=== PATIENT | female | born 1995 | race Caucasian/White ===

== ENCOUNTER → 2022-07-06 | Outpatient (CLI) | payer OTHER, SELFPAY ==
[2022-07-06 17:18] LABS: Absolute Lymphocyte Count 2.13 X10^3/uL (0.83-4.51); Absolute Neutrophil Count 7.7 X10^3/uL (2.0-7.7); Basophil# 0.02 X10^3/uL; Basophil% 0.2 % (0-1); Eosinophil# 0.01 X10^3/uL; Eosinophils% 0.1 % (0-5); Hematocrit 38.6 % (37-47); Hemoglobin 13.4 g/dL (12.0-15.0); Lymphocyte # 2.13 X10^3/ul (0.83-4.51); Lymphocyte % 20.3 % (19-41); Mean Corp Hgb Conc 34.7 g/dL (32-36); Mean Corpuscular Hgb 29.5 pg (27.0-32.0); Mean Corpuscular Volume 84.8 fL (81-99); Mean Platelet Vol. 8.7 fl (6.2-12.0); Monocyte# 0.56 X10^3/uL; Monocyte% 5.3 % (0-10); NRBC Flagged by Analyzer 0 % (0-5); Neutrophil # 7.72 X10^3/uL (2.7-7.7); Neutrophil % 73.7 % (47-70); Platelet Count 292 K/mm3 (150-450); RBC Distribution Width CV 12.4 % (11.6-14.6); Red Blood Count 4.55 M/mm3 (4.2-5.4); White Blood Count 10.5 K/mm3 (4.4-11.0)
[2022-07-06 18:33] LABS: HIV - WCH Non-Reactive (Nonreactive); Hepatitis B Surface Antigen Non-Reactive (Nonreactive); Hepatitis C Antibody Non-Reactive (Nonreactive); Rubella IgG Reactive (Nonreactive); Syphilis Antibodies Non-reactive
[2022-07-10 05:06] LABS: Chlamydia By Nucleic Acid AMP Negative (Negative); Gonococcus By Nucleic Acid AMP Negative (Negative)
[2022-07-11 11:23] LABS: V-Zoster IgG (Immunity) 289 index (Immune >165)
[2022-07-18 15:59] LABS: HPV Reflexed? NOT INDICATED
== END | disposition home or self-care (01) ==
LOC: WOBLAB 14:20
PROVIDERS: Visit Provider Obstetrics & Gynecology
DX: Z34.81 Encounter for supervision of other normal pregnancy, first trimester (principal)
CPT/HCPCS: 36415; 85025; 86703; 86762; 86780; 86787; 86803; 87086; 87088; 87340; 87491; 87591; 88175; G0145

== ENCOUNTER → 2022-08-15 | Outpatient (CLI) | payer OTHER, SELFPAY ==
--- NOTE | 2022-08-15 | IMM_PTH ---
PATIENT: CARMENCITA STARK LOC: [facility] U#:[id number] AGE/SX: 26/F ROOM: RE08/15/[address]: Dr. Guillermo Menard MD : 1995 BED: DIS: 08/15/2022 SPEC #: [id number] RECD: 08/16/22 13:30 STATUS: EFFIE REQ #: [id number] SKYLAR: 08/15/22 00:[address]: Guillermo Menard DEPT: IMMUNOHISTOCHEMISTRY RECD BY: Zakiya Wihtley Tissues: Uterine cervix, NOS Procedures: p16 (initial) CEA (add) CK5-6 (add) KI-67 (add) Vimentin (add) 34BE12 (add) P40 (add) PHYSICIAN & INSTITUTION [place] [address] SPECIMEN INFORMATION: Tissue Source: Cervix at 1, 5, 7 & 11 o?clock Clinical Info: HGSIL Specimen Number: [id number] CPT code: 00363, 77046 x6 METHODOLOGY: Deparaffinized sections of prefer/formalin-fixed tissue or PAP/DQ stained slides are incubated with monoclonal/polyclonal antibodies/oligonucleotide probes. Localization is made via biotin free immunoperoxidase method. Appropriate controls are performed and reacted as expected. Results on target cell population are indicated in the following table: RESULTS: ANTIBODY / CLONE RESULT P16 (E6H4) positive, focal block-like Ki-67 (30-9) positive, low P40 (BC28) positive, focal CK5-6 (D5 & 1684) positive, focal 34BE12 (34BE12) positive CEA (11-7/TF-3HB-1) negative Vimentin (V9) negative These tests were developed and their performance characteristics determined by [facility]. They may not have been cleared or approved by the U.S. Food and Drug Administration. The FDA has determined that such clearance or approval is not necessary. The above immunohistochemical/dualISH markers are ordered and reviewed by the Pathologist. 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 AM:megan 08/28/2022 Case has been reviewed in consultation with Dr. Magana who concurs with the above diagnosis. IDC:SJ
--- NOTE | 2022-08-15 11:20 | CER_PTH ---
PATIENT: CARMENCITA STARK LOC: [facility] U#:[id number] AGE/SX: 26/F ROOM: RE08/15/[address]: Dr. Guillermo Menard MD : 1995 BED: DIS: 08/15/2022 SPEC #: [id number] RECD: 08/15/22 13:40 STATUS: EFFIE NIKO #: [id number] SKYLAR: 08/15/22 11:[address]: Guillermo Menard DEPT: SURGICAL PATHOLOGY RECD BY: Hilda Becker Tissues: Uterine cervix, NOS Procedures: Surgery Specimen Level IV HEADER OPERATION: Colposcopy PRE-OP DIAGNOSIS: HGSIL TISSUE SUBMITTED: Cervical biopsy, 1, 5, 7 & 11 o?clock MICROSCOPIC DIAGNOSIS Cervix at 1, 5, 7 & 11 o?clock, biopsy: Mild and moderate squamous dysplasia, SHI I-II (HSIL) with glandular extension. Extensive pseudodecidual change. Endocervix with focal squamous metaplasia and chronic inflammation. See comment. AM:megan 08/28/2022 COMMENT Results from immunohistochemistry ([id number]) for surrogate HPV marker (p16) will be reported separately. Moderate dysplasia is noted in glandular epithelium. Clinical correlation is suggested. Case is reviewed I consultation with of [employer]. Complete report is in EMR. Case has been reviewed in consultation with Dr. Magana who concurs with the above diagnosis. IDC:JEMMA MICROSCOPIC DESCRIPTION Slides are reviewed. GROSS DESCRIPTION Received in fixative is one container labeled with the patient's name and designated cervical biopsy. The specimen consists of multiple irregular fragments of oliver soft tissue mixed with mucoid tissue that in aggregate measure 1 x 0.7 x 0.1 cm. The specimen is totally submitted in one cassette. / JEMMA:megan 08/15/2022 TC:0 CPT: 72207
== END | disposition home or self-care (01) ==
LOC: LABSPEC 13:12
PROVIDERS: Visit Provider Obstetrics & Gynecology
DX: R87.623 High grade squamous intraepithelial lesion on cytologic smear of vagina (HGSIL) (principal)
CPT/HCPCS: 88305; 88341; 88342

== ENCOUNTER → 2022-11-09 | Outpatient (CLI) | payer OTHER, SELFPAY ==
[2022-11-09 09:27] LABS: Absolute Lymphocyte Count 1.46 X10^3/uL (0.83-4.51); Absolute Neutrophil Count 8.3 X10^3/uL (2.0-7.7); Basophil# 0.03 X10^3/uL; Basophil% 0.3 % (0-1); Eosinophil# 0.02 X10^3/uL; Eosinophils% 0.2 % (0-5); Hematocrit 34.4 % (37-47); Hemoglobin 11.6 g/dL (12.0-15.0); Lymphocyte # 1.46 X10^3/ul (0.83-4.51); Lymphocyte % 14.2 % (19-41); Mean Corp Hgb Conc 33.7 g/dL (32-36); Mean Corpuscular Volume 88.9 fL (81-99); Mean Platelet Vol. 8.3 fl (6.2-12.0); Monocyte# 0.35 X10^3/uL; Monocyte% 3.4 % (0-10); NRBC Flagged by Analyzer 0 % (0-5); Neutrophil # 8.31 X10^3/uL (2.7-7.7); Neutrophil % 80.6 % (47-70); Platelet Count 227 K/mm3 (150-450); RBC Distribution Width SD 41.8 fl (35.1-43.9); Red Blood Count 3.87 M/mm3 (4.2-5.4); White Blood Count 10.3 K/mm3 (4.4-11.0)
[2022-11-09 09:54] LABS: Glucose Challenge Gest 1H 50g 153 mg/dL (70-140)
[2022-11-09 10:17] LABS: Syphilis Antibodies Non-reactive
== END | disposition home or self-care (01) ==
LOC: WOBLAB 08:44
PROVIDERS: Visit Provider Obstetrics & Gynecology
DX: Z34.82 Encounter for supervision of other normal pregnancy, second trimester (principal)
CPT/HCPCS: 36415; 82950; 85025; 86780

== ENCOUNTER → 2022-11-13 | Outpatient (CLI) | payer OTHER, SELFPAY ==
[2022-11-13 09:21] LABS: Glucose GTT-Gestation. Fasting 84 mg/dL (<105)
[2022-11-13 10:35] LABS: Glucose GTT-Gestational 1 Hr 155 mg/dL (<190)
[2022-11-13 11:34] LABS: Glucose GTT-Gestational 2 Hr 145 mg/dL (<165)
[2022-11-13 13:28] LABS: Glucose GTT-Gestational 3 Hr 119 L (<145)
== END | disposition home or self-care (01) ==
LOC: WOBLAB 08:36
PROVIDERS: Visit Provider Obstetrics & Gynecology
DX: O24.912 Unspecified diabetes mellitus in pregnancy, second trimester (principal); Z3A.00 Weeks of gestation of pregnancy not specified
CPT/HCPCS: 36415; 82951; 82952

== ENCOUNTER → 2023-01-19 | Outpatient (CLI) | payer OTHER, SELFPAY | END | disposition home or self-care (01) | LOC: LAB 17:01 | PROVIDERS: Referring Provider Obstetrics & Gynecology; Visit Provider Obstetrics & Gynecology | DX: Z34.83 Encounter for supervision of other normal pregnancy, third trimester (principal); Z36.85 Encounter for antenatal screening for Streptococcus B; K83.1 Obstruction of bile duct ==

== ENCOUNTER → 2023-01-19 | Outpatient (CLI) | payer OTHER, SELFPAY ==
[2023-01-19 17:25] LABS: Hematocrit 34.3 % (37-47); Hemoglobin 11.4 g/dL (12.0-15.0); Mean Corp Hgb Conc 33.2 g/dL (32-36); Mean Corpuscular Hgb 27.3 pg (27.0-32.0); Mean Corpuscular Volume 82.1 fL (81-99); Mean Platelet Vol. 8.8 fl (6.2-12.0); Platelet Count 157 K/mm3 (150-450); RBC Distribution Width CV 13.8 % (11.6-14.6); RBC Distribution Width SD 40.6 fl (35.1-43.9); Red Blood Count 4.18 M/mm3 (4.2-5.4); White Blood Count 9.5 K/mm3 (4.4-11.0)
[2023-01-19 18:44] LABS: ALB/GLOB Ratio 0.5 RATIO (0.9-2.4); AST(SGOT) 21 U/L (15-37); Alanine Aminotransfer ALT/SGPT 24 U/L (13-56); Albumin, Serum 2.6 g/dL (3.2-5.0); Alkaline Phosphatase 217 U/L (45-117); Anion Gap 9 (5-15); BUN 7 mg/dL (7-18); BUN/Creat Ratio 10.6 RATIO (10-20); Calcium,Total 8.7 mg/dL (8.5-10.1); Chloride 104 mmol/L (98-107); Creatinine, Serum 0.66 mg/dL (0.55-1.02); EST Glomerular Filtration Rate 114 mL/min (>60); Est Glom Filt Rate - Afr Amer 137 mL/min (>60); Globulin 4.8 g/dL (2.2-4.2); Glucose 119 mg/dL (74-106); Potassium 3.5 mmol/L (3.5-5.1); Protein, Total 7.4 g/dL (6.4-8.2); Sodium Level 134 mmol/L (136-145)
== END | disposition home or self-care (01) ==
LOC: LABSPEC 16:58 → LAB 17:05
PROVIDERS: Visit Provider Obstetrics & Gynecology
DX: Z34.83 Encounter for supervision of other normal pregnancy, third trimester (principal); Z36.85 Encounter for antenatal screening for Streptococcus B
CPT/HCPCS: 36415; 80053; 85027; 87081

== ENCOUNTER 2023-02-01 06:50 | Inpatient (IN) | payer OTHER, SELFPAY ==
[2023-02-01] VITALS (69 sets, daily range): BP systolic 90–137; BP diastolic 51–88; PULSE 60–239; TEMP 35.7–37.3; O2SAT 89–100; BMI 36.2
[2023-02-01] MEDS: Lactated Ringers 1,000 ML 50 ML IV (08:10)
[2023-02-01] MEDS: Oxytocin 15 Units/NS 250ml 15 UNITS/250 ML IV.SOLN 2 UNITS IV (08:22)
--- NOTE | 2023-02-01 08:23 | PCM.HP.BLA ---
History and Physical Date of Admission: 02/01/23 Chief complaint: Induction of labor for cholestasis History present illness: 27-year-old at 38 weeks and 2 days with CROW 02/13/2023 arrives for induction of labor with cholestasis. Denies headache, vision changes, chest pain, shortness of breath, nausea vomit, right upper quadrant pain. Patient states good movement. is complicated by cholestasis, BMI 36, SHI-2 Obstetric history: G1: 41-week female 6 pounds 7 ounces G2: Current Past medical history: Cholestasis, SHI-2 Past surgical history: [place] teeth extraction Allergies: Penicillin Family history: Denies history DVT or PE Social history: Denies smoking, alcohol use, drug use Review of systems: Besides above pertinent positives a full review of systems was performed and found to be negative Physical exam: Vitals: Blood pressure 121/79 pulse 113 SPO2 97% on room air General: Normal-appearing no acute distress HEENT: Normocephalic/atraumatic no cervical lymphadenopathy Cardiac/respiratory: No use of accessory muscles, nonlabored breathing Abdomen: Soft, nontender, gravid Extremities: No peripheral edema normal peripheral pulses Psych: Normal affect normal demeanor nonpressured speech Labs: Pending Assessment and plan: 27-year-old at 38 weeks and 2 days arrives for induction of labor with cholestasis Admit labor and delivery CEFM GBS negative Pitocin induction Cholestasis: Induction today and will follow-up
[2023-02-01 08:47] LABS: Absolute Lymphocyte Count 1.33 X10^3/uL (0.83-4.51); Absolute Neutrophil Count 6.8 X10^3/uL (2.0-7.7); Basophil# 0.01 X10^3/uL; Basophil% 0.1 % (0-1); Eosinophil# 0.01 X10^3/uL; Eosinophils% 0.1 % (0-5); Hemoglobin 11.5 g/dL (12.0-15.0); Lymphocyte # 1.33 X10^3/ul (0.83-4.51); Lymphocyte % 15.3 % (19-41); Mean Corp Hgb Conc 32.9 g/dL (32-36); Mean Corpuscular Hgb 27.3 pg (27.0-32.0); Mean Corpuscular Volume 83.1 fL (81-99); Mean Platelet Vol. 8.9 fl (6.2-12.0); Monocyte% 5.8 % (0-10); NRBC Flagged by Analyzer 0 % (0-5); Neutrophil # 6.76 X10^3/uL (2.7-7.7); Platelet Count 175 K/mm3 (150-450); RBC Distribution Width CV 14.3 % (11.6-14.6); RBC Distribution Width SD 42.2 fl (35.1-43.9); Red Blood Count 4.21 M/mm3 (4.2-5.4); White Blood Count 8.7 K/mm3 (4.4-11.0)
[2023-02-01 09:49] LABS: Syphilis Antibodies Non-reactive
[2023-02-01] MEDS: LACTATED RINGERS 500 ML 999 ML IV ×2 (15:08→17:00)
[2023-02-01] MEDS: fentaNYL-bupivacaine (epidural) 100 ML BAG EPIDURAL (16:34)
--- NOTE | 2023-02-01 17:11 | PCM.PN.OB ---
Subjective Subjective Patient now comfortable with epidural Objective Data Objective Data Vital Signs: Vital Signs Temp Pulse BP Pulse Ox 96.6 F L 75 100/66 100 02/01/23 16:53 02/01/23 17:07 02/01/23 17:07 02/01/23 17:07 Weight: 185 lb 6.54 oz Body Mass Index (BMI) 36.2 Intake & Output: Intake and Output for Last 24 Hours 01/30/23 01/31/23 02/01/23 23:59 23:59 23:59 Intake Total 412.73 / 412.73 Output Total 900 / 900 Balance -487.27 / -487.27 Lab / Micro Data 02/01/23 08:10 Labs: Laboratory Results - last 24 hr 02/01/23 08:10: WBC 8.7, RBC 4.21, Hgb 11.5 L, Hct 35.0 L, MCV 83.1, MCH 27.3, MCHC 32.9, RDW Std Deviation 42.2, RDW Coeff of Jayson 14.3, Plt Count 175, MPV 8.9, Immature Gran % (Auto) 0.700, Neut % (Auto) 78.0 H, Lymph % (Auto) 15.3 L, [place] % (Auto) 5.8, Eos % (Auto) 0.1, Baso % (Auto) 0.1, Absolute Neuts (auto) 6.8, Absolute Lymphs (auto) 1.33, Nucleated RBC % 0, Syphilis Total Ab Non-reactive, Blood Type O POSITIVE, Antibody Screen NEGATIVE Physical Exam Const alert, oriented x3, no apparent distress, average body habitus, healthy appearing and well nourished HEENT normocephalic and moist oral mucous membranes Eyes PERRL Neck full ROM Resp normal respiratory effort, no retractions and no use of accessory muscles GI GI Narrative: Soft, nontender, gravid Narrative: Cervical exam: /-2. AROM clear fluid Psych mental status grossly normal, affect normal, speech normal and activity/motor behavior normal Assessment & Plan (1) : PLAN: Patient seen and examined. Now comfortable with epidural. Educated patient on options for AROM wrist benefits alternatives, patient and partner agreed AROM. AROM clear fluid. Educated patient on care plan going forward all questions answered for patient and partner and nursing. We will continue to titrate Pitocin
[2023-02-01] MEDS: Lactated Ringers 1,000 ML 200 ML IV (19:50)
[2023-02-01] MEDS: Ondansetron 4 MG/2 ML Vial IV (20:17)
[2023-02-01] MEDS: Mag Hydrox/Al Hydrox/Simeth 30 ML UDC PO (20:54)
[2023-02-01] MEDS: Methylergonovine 0.2 MG/ML Ampul IM (21:26)
[2023-02-01] MEDS: miSOPROStol 200 MCG Tablet 1000 MCG RC (21:37)
--- NOTE | 2023-02-01 21:44 | EX.PCM.OBRPT ---
Vaginal Delivery Findings Description of Procedure: Normal spontaneous vaginal delivery of a viable male , vertex BARBARA. Head and shoulders delivered with ease. Cord clamped and cut. Baby handed off to patient. Placenta delivered via cord traction and fundal massage intact, placenta reinspected after delivery and again intact. Uterine atony noted IM Pitocin given per protocol in addition to IM Methergine and Cytotec at 1000 mcg rectally. Uterus noted to be firm. Bedside ultrasound notes thin endometrial stripe. Second-degree midline perineal laceration noted and repaired in typical fashion. EBL 500 cc Apgars 6/8
[2023-02-01] MEDS: Oxytocin 15 Units/NS 250ml 15 UNITS/250 ML IV.SOLN 83 UNITS IV (21:53)
[2023-02-01] MEDS: Acetaminophen 500 MG Tablet 1000 MG PO (22:56)
[2023-02-02] MEDS: 0.9% Saline Lock 10 ML Syringe IV (00:53)
--- NOTE | 2023-02-02 02:14 | PCM.PN.OB ---
Subjective Subjective Patient resting comfortably in bed Objective Data Objective Data Vital Signs: Vital Signs Temp Pulse BP Pulse Ox 99.0 F 93 122/73 H 97 02/01/23 23:40 02/01/23 23:43 02/01/23 23:43 02/01/23 23:42 Weight: 185 lb 6.54 oz Body Mass Index (BMI) 36.2 Intake & Output: Intake and Output for Last 24 Hours 01/31/23 02/01/23 02/02/23 23:59 23:59 23:59 Intake Total 3096.67 / 3096.67 249 / 249 Output Total 1400 / 2100 700 / 700 Balance 1696.67 / 996.67 -451 / -451 Lab / Micro Data 02/01/23 08:10 Labs: Laboratory Results - last 24 hr 02/01/23 08:10: WBC 8.7, RBC 4.21, Hgb 11.5 L, Hct 35.0 L, MCV 83.1, MCH 27.3, MCHC 32.9, RDW Std Deviation 42.2, RDW Coeff of Jayson 14.3, Plt Count 175, MPV 8.9, Immature Gran % (Auto) 0.700, Neut % (Auto) 78.0 H, Lymph % (Auto) 15.3 L, [place] % (Auto) 5.8, Eos % (Auto) 0.1, Baso % (Auto) 0.1, Absolute Neuts (auto) 6.8, Absolute Lymphs (auto) 1.33, Nucleated RBC % 0, Syphilis Total Ab Non-reactive, Blood Type O POSITIVE, Antibody Screen NEGATIVE Physical Exam Const no apparent distress, average body habitus, healthy appearing and well nourished HEENT normocephalic and moist oral mucous membranes Chest inspection of chest normal Resp normal respiratory effort, no retractions and no use of accessory muscles Extremity normal to inspection and no clubbing, cyanosis or edema Skin no rashes or lesions noted Assessment & Plan (1) Vaginal delivery: PLAN: day 1. Resting comfortably in bed. Discussed care plan with patient's partner. Possibly home tomorrow
[2023-02-02 04:25] VITALS: BP 105/63; PULSE 86; RESP 16; TEMP 36.9; O2SAT 96
[2023-02-02] MEDS: Acetaminophen 500 MG Tablet 1000 MG PO ×3 (04:58→22:09)
[2023-02-02 07:52] VITALS: BP 98/51; PULSE 78; RESP 16; TEMP 36.7
[2023-02-02] MEDS: Ibuprofen 600 MG Tablet PO (11:23)
[2023-02-02 11:25] VITALS: BP 97/57; PULSE 88; RESP 16; TEMP 36.6
[2023-02-02 16:30] VITALS: BP 88/56; PULSE 83; RESP 16; TEMP 36.2
[2023-02-02 20:40] VITALS: BP 93/55; PULSE 89; RESP 16; TEMP 36.3; O2SAT 97
--- NOTE | 2023-02-03 00:25 | PCM.PN.OB ---
Subjective Subjective Patient feeling well. Lochia minimal. No issues or concerns. Itching resolved. Objective Data Objective Data Vital Signs: Vital Signs Temp Pulse Resp BP Pulse Ox O2 Del Method 97.3 F L 89 16 93/55 L 97 Room Air 02/02/23 20:40 02/02/23 20:40 02/02/23 20:40 02/02/23 20:40 02/02/23 20:40 02/02/23 20:40 Oxygen Delivery Method Room Air Weight: 84.1 kg Body Mass Index (BMI) 36.2 Intake & Output: Intake and Output for Last 24 Hours 02/01/23 02/02/23 02/03/23 23:59 23:59 23:59 Intake Total 3096.67 / 3096.67 249 / 249 Output Total 1400 / 2100 1075 / 1075 Balance 1696.67 / 996.67 -826 / -826 Lab / Micro Data Attestation: I reviewed the patient's lab results. 02/01/23 08:10 Physical Exam Const alert, oriented x3 and no apparent distress HEENT normocephalic Head and Scalp: atraumatic Neck full ROM Resp normal respiratory effort Cardio regular rate GI normal to inspection, nondistended, normoactive bowel sounds GI Narrative: Uterus 2 cm below umbilicus Back/Spine normal ROM Extremity normal to inspection Extremity Narrative: Minimal pedal edema Neuro no focal motor deficits and no sensory deficits noted Psych mental status grossly normal and affect normal Assessment & Plan (1) Vaginal delivery: PLAN: day 1 status post . Complicated by cholestasis. Pruritus is resolved. Feeling well. Desires discharge home today.
--- NOTE | 2023-02-03 00:26 | DCINST_ITS ---
Discharge Instructions Diet Discharge Diet: No restrictions Activity Discharge Activity: Return to Normal Activity and May Shower May resume sexual activity in: 4-6 weeks Weight Bearing Status: Weight bearing as tolerated Lifting Restrictions: No greater than 25 pounds Dressing / Incision Call your doctor if you observe: Fever of 101 or Higher, Change in Color, Inability to urinate, Using more than 1 pad per hour, Shortness of breath, Dizziness, Swelling in the ankles, Chest pain and Calf discomfort Follow Up Care Please Follow Up With: Guillermo Menard MD When: 6-week visit Test Results: Test results from this visit will be discussed in further detail at your follow- up appointment, if applicable. Discharge Plan Admission Admit Date/Time: 02/01/23 06:50 Primary Reason for Your Visit: Vaginal delivery Attending Provider: Guillermo Menard Primary Care Provider: Mallorie Moss Primary Discharge Orders/Prescriptions Prescriptions: Continued PNV 955-bfzgy-daufk-3-fish oil [ with DHA-Folic Acid] 1 EACH tablet,chewable 1 ea PO DAILY ibuprofen 600 MG tablet 600 mg PO Q6H PRN PRN (Reason: pain or cramping) Qty: 30 1RF ferrous sulfate [Iron (ferrous sulfate)] 325 MG tablet 325 mg PO DAILY Qty: 30 3RF Discontinued oxycodone 5 MG tablet 5 - 10 mg PO Q4H PRN PRN (Reason: MODERATE PAIN (4-5/10)) Qty: 20 0RF ursodiol 300 mg capsule PO Q8H Patient Comments: TAKE 1 CAPSULE BY MOUTH THREE TIMES A DAY folic acid 1 mg tablet 1 mg PO DAILY Referrals / Follow Up: Care Physician,Mallorie Primary [Primary Care Provider] - Disposition Disposition (needs filled in before D/C Order can be placed): Home, Self Care
--- NOTE | 2023-02-03 00:28 | PCM.DC.SUM ---
Providers Date of Admission: 02/01/23 Primary Care Physician: Mallorie Primary Care Phys Reason For Visit: VAGINAL DELIVERY Diagnosis Discharge Diagnosis (1) Vaginal delivery: Status: Acute Code(s): O80 - Encounter for full-term uncomplicated delivery Plan: day 1 status post . Complicated by cholestasis. Pruritus is resolved. Feeling well. Desires discharge home today. Medications at Discharge Home Medications ferrous sulfate 325 mg (65 mg iron) tablet (Iron (ferrous sulfate)) 325 mg PO DAILY #30 tabs 09/14/15 ibuprofen 600 mg tablet 600 mg PO Q6H PRN PRN pain or cramping ##30 09/14/15 103-folic acid 400 mcg-omeg3 32.5 mg-dha-fish oil chew tablet ( with DHA and Folic Acid) 1 ea PO DAILY 09/14/15 Hospital Course Summary of Care Provided Hospital Course: Admitted for induction of labor for cholestasis. Patient had vaginal delivery. Stable for discharge day 2. Physical Exam Const alert, oriented x3 and no apparent distress HEENT normocephalic Head and Scalp: atraumatic Neck full ROM Resp normal respiratory effort Cardio regular rate GI normal to inspection, nondistended, normoactive bowel sounds GI Narrative: Uterus 2 cm below umbilicus Back/Spine normal ROM Extremity normal to inspection Extremity Narrative: Minimal pedal edema Neuro no focal motor deficits and no sensory deficits noted Psych mental status grossly normal and affect normal Weight / BMI Weight Weight: 84.1 kg Body Mass Index (BMI) 36.2 ABG / Lab / Microbiology Data 02/01/23 08:10 D/C Instructions Discharge Diet: No restrictions May resume sexual activity in: 4-6 weeks Weight Bearing Status: Weight bearing as tolerated Call your doctor if you observe: Fever of 101 or Higher, Change in Color, Inability to urinate, Using more than 1 pad per hour, Shortness of breath, Dizziness, Swelling in the ankles, Chest pain and Calf discomfort Please Follow Up With: Guillermo Menard MD When: 6-week visit Meaningful Use Info Meaningful Use Diagnoses (Choose all that apply): None applicable Discharge Plan Admission Admit Date/Time: 02/01/23 06:50 Primary Reason for Your Visit: Vaginal delivery Attending Provider: Guillermo Menard Primary Care Provider: Care Physician,Mallorie Primary Discharge Orders/Prescriptions Prescriptions: Continued PNV 400-sbleq-kjwab-3-fish oil [ with DHA-Folic Acid] 1 EACH tablet,chewable 1 ea PO DAILY ibuprofen 600 MG tablet 600 mg PO Q6H PRN PRN (Reason: pain or cramping) Qty: 30 1RF ferrous sulfate [Iron (ferrous sulfate)] 325 MG tablet 325 mg PO DAILY Qty: 30 3RF Discontinued oxycodone 5 MG tablet 5 - 10 mg PO Q4H PRN PRN (Reason: MODERATE PAIN (4-5/10)) Qty: 20 0RF ursodiol 300 mg capsule PO Q8H Patient Comments: TAKE 1 CAPSULE BY MOUTH THREE TIMES A DAY folic acid 1 mg tablet 1 mg PO DAILY Referrals / Follow Up: Care Physician,No Primary [Primary Care Provider] - Disposition Disposition (needs filled in before D/C Order can be placed): Home, Self Care
[2023-02-03 02:15] VITALS: BP 99/57; PULSE 87; RESP 16; TEMP 36.5; O2SAT 97
[2023-02-03] MEDS: Ibuprofen 600 MG Tablet PO ×3 (03:15→16:45)
[2023-02-03] MEDS: Acetaminophen 500 MG Tablet 1000 MG PO (06:32)
[2023-02-03 08:05] VITALS: BP 95/62; PULSE 82; RESP 17; TEMP 36.6
[2023-02-03 14:15] VITALS: BP 95/54; PULSE 84; RESP 17; TEMP 36.5
[2023-02-03 19:11] VITALS: BP 102/61; PULSE 95; RESP 17
== END 2023-02-03 20:10 | disposition home or self-care (01) | DRG 805 ==
PROVIDERS: Admitting Provider Obstetrics & Gynecology; Referring Provider Obstetrics & Gynecology; Visit Provider Obstetrics & Gynecology
DX: O26.62 Liver and biliary tract disorders in childbirth (principal); Z37.0 Single live birth; K83.1 Obstruction of bile duct; L29.9 Pruritus, unspecified; O99.72 Diseases of the skin and subcutaneous tissue complicating childbirth; O70.1 Second degree perineal laceration during delivery; O62.2 Other uterine inertia; Z3A.38 38 weeks gestation of pregnancy
CPT/HCPCS: 59025; 59050; 76815; 85025; 86780; 86850; 86900; 86901; 99221; J7120; A4216; G0378; J2405

== ENCOUNTER → 2023-03-15 | Outpatient (CLI) | payer OTHER, SELFPAY ==
[2023-03-15 15:34] LABS: Hematocrit 34.5 % (37-47); Hemoglobin 11.2 g/dL (12.0-15.0); Mean Corp Hgb Conc 32.5 g/dL (32-36); Mean Corpuscular Hgb 25.7 pg (27.0-32.0); Mean Corpuscular Volume 79.3 fL (81-99); Mean Platelet Vol. 8.2 fl (6.2-12.0); Platelet Count 301 K/mm3 (150-450); RBC Distribution Width CV 13.7 % (11.6-14.6); RBC Distribution Width SD 39.5 fl (35.1-43.9); Red Blood Count 4.35 M/mm3 (4.2-5.4); White Blood Count 6.9 K/mm3 (4.4-11.0)
[2023-03-15 15:55] LABS: ALB/GLOB Ratio 0.8 RATIO (0.9-2.4); AST(SGOT) 16 U/L (15-37); Alanine Aminotransfer ALT/SGPT 26 U/L (13-56); Albumin, Serum 3.6 g/dL (3.2-5.0); Alkaline Phosphatase 122 U/L (45-117); Anion Gap 8 (5-15); BUN 15 mg/dL (7-18); BUN/Creat Ratio 16.6 RATIO (10-20); Calcium,Total 9.2 mg/dL (8.5-10.1); Chloride 106 mmol/L (98-107); Creatinine, Serum 0.91 mg/dL (0.55-1.02); EST Glomerular Filtration Rate 79 mL/min (>60); Est Glom Filt Rate - Afr Amer 95 mL/min (>60); Globulin 4.6 g/dL (2.2-4.2); Glucose 88 mg/dL (74-106); Potassium 3.9 mmol/L (3.5-5.1); Protein, Total 8.2 g/dL (6.4-8.2); Sodium Level 139 mmol/L (136-145)
== END | disposition home or self-care (01) ==
LOC: WOBLAB 14:57
PROVIDERS: Visit Provider Obstetrics & Gynecology
DX: K83.1 Obstruction of bile duct (principal)
CPT/HCPCS: 36415; 80053; 85027

== ENCOUNTER 2023-03-29 11:05 | Day surgery (SDC) | payer OTHER, SELFPAY ==
--- NOTE | 2023-03-29 | IMM_PTH ---
PATIENT: CARMENCITA STARK LOC: [facility] [place] U#:[id number] AGE/SX: 27/F ROOM: RE03/29/[address]: Dr. Guillermo Menard MD : 1995 BED: DIS: 03/29/2023 SPEC #: [id number] RECD: 04/03/23 12:33 STATUS: EFFIE REQ #: [id number] SKYLAR: 03/29/23 00:[address]: Guillermo Menard DEPT: IMMUNOHISTOCHEMISTRY RECD BY: Zakiya Whitley ENTERED: 04/03/23 12:35 SP TYPE: IMMUNO OTHR DR: No Primary Care Phys Tissues: UTERINE CERVIX LEEP Procedures: p16 (initial) KI-67 (add) P16 (add) PHYSICIAN & INSTITUTION [place] [address] SPECIMEN INFORMATION: Tissue Source: Cervical cone Clinical Info: LEEP procedure Specimen Number: [id number] #1-4 CPT code: 67106, 94019 x7 METHODOLOGY: Deparaffinized sections of prefer/formalin-fixed tissue or PAP/DQ stained slides are incubated with monoclonal/polyclonal antibodies/oligonucleotide probes. Localization is made via biotin free immunoperoxidase method. Appropriate controls are performed and reacted as expected. Results on target cell population are indicated in the following table: RESULTS: ANTIBODY / CLONE RESULT Block 1 P16 (E6H4) positive, block staining Ki-67 (30-9) positive, moderate Block 2 P16 (E6H4) positive, block staining Ki-67 (30-9) positive, moderate Block 3 P16 (E6H4) positive, block staining Ki-67 (30-9) positive, moderate Block 4 P16 (E6H4) positive, block staining Ki-67 (30-9) positive, moderate These tests were developed and their performance characteristics determined by [facility]. They may not have been cleared or approved by the U.S. Food and Drug Administration. The FDA has determined that such clearance or approval is not necessary. The above immunohistochemical/dualISH markers are ordered and reviewed by the Pathologist. INTERPRETATION: Cervix, LEEP cone biopsy: Moderate to severe squamous dysplasia. JEMMA:megan 04/04/2023
[2023-03-29 11:50] VITALS: BP 106/63; PULSE 72; RESP 16; TEMP 36.6; O2SAT 99; BMI 33.9
[2023-03-29] MEDS: Lactated Ringers 1,000 ML 15 ML IV (11:54)
[2023-03-29 11:58] LABS: Internal QC Validated? YES +Cl - CLEAR BKGD; Pregnancy, Urine Negative Negative
--- NOTE | 2023-03-29 12:40 | PCM.HP.BLA ---
History and Physical Date of Admission: 03/29/23 Chief complaint: LEEP procedure History present illness: 27-year-old scheduled for loop electrosurgical excision procedure. No medical changes since last seen. All questions answered and consent signed. Obstetric history: with a history of 2 vaginal deliveries Past medical history: None Allergies: Penicillin (rash), prednisone Past surgical history: [place] teeth extraction Medications: None Family history: Denies history DVT or PE Social history: Denies smoking, denies alcohol, denies drug use Review of systems: Besides above pertinent positives a full review of systems was performed and found to be negative Physical exam: Vitals: Blood pressure 106/63 pulse 72 respiratory rate 16 temperature 97.8 ?F SPO2 99% on room air General: Normal-appearing no acute distress HEENT: Normocephalic/atraumatic no cervical of adenopathy Cardiac/respiratory: No use accessory muscles, nonlabored breathing Abdomen: Soft, nontender, nondistended Extremities: No peripheral edema normal peripheral pulses Psych: Normal affect, demeanor nonpressured speech Labs: Urine test negative Assessment plan: 19-year-old scheduled for loop electrosurgical excision procedure. Patient understands risk of the procedure include but are not limited to visceral or vascular injury, prolonged hospitalization, blood loss need for transfusion, reoperation. Patient state understanding wish to proceed. All questions were answered consent was signed.
--- NOTE | 2023-03-29 12:50 | CONE_PTH ---
PATIENT: CARMNECITA STARK LOC: [facility] [place] U#:[id number] AGE/SX: 27/F ROOM: RE03/29/[address]: Dr. Guillermo Menard MD : 1995 BED: DIS: 03/29/2023 SPEC #: [id number] RECD: 03/29/23 17:11 STATUS: EFFIE NIKO #: [id number] SKYLAR: 03/29/23 12:[address]: Guillermo Menard DEPT: SURGICAL PATHOLOGY RECD BY: Hilda Becker ENTERED: 03/30/23 09:15 SP TYPE: Leep Cone JESSY DR: No Primary Care Phys Tissues: UTERINE CERVIX LEEP Procedures: Surgery Specimen Level V HEADER OPERATION: LEEP cone PRE-OP DIAGNOSIS: LEEP procedure TISSUE SUBMITTED: Cervical cone MICROSCOPIC DIAGNOSIS Cervix, LEEP cone biopsy: Mild, moderate and severe squamous dysplasia (HGSIL and SHI I-III). Dysplastic changes also involve endocervical glands. Moderate to marked chronic inflammation. See comment. JEMMA:megan 04/03/2023 COMMENT Immunohistochemistry ([id number]) for surrogate HPV marker (p16) supports the above diagnosis. The resection margin cannot be assessed as the specimen was received in multiple pieces. Please make reference to previous specimen ([id number]) cervix at 1, 5, 7 & 11 o'clock, biopsy with diagnosis of mild and moderate squamous dysplasia. MICROSCOPIC DESCRIPTION Slides are reviewed. GROSS DESCRIPTION Received in fixative is one container labeled with the patient's name and designated cervical cone. The specimen consists of three pieces of oliver, indurated tissue that in aggregate measure 2.4 x 2.0 x 0.5 cm. No mucosal lesion is identified. Nonmucosal surface is inked black. All three pieces are serially sectioned and submitted entirely in four cassettes. / JEMMA:megan 03/30/2023 TC:5 CPT: 81895
[2023-03-29] MEDS: Cefazolin 2 GM in 0.9% Normal Saline 100 ML IV (13:57)
[2023-03-29] MEDS: Iodine/Potassium Iodide 14ML Bottle TOPICAL (14:30)
--- NOTE | 2023-03-29 14:49 | DCINST_ITS ---
Discharge Instructions Diet Discharge Diet: No restrictions Activity Discharge Activity: Return to Normal Activity, May Drive, May Shower and - (No tub baths for 2-week) May resume sexual activity in: 6-8 weeks Weight Bearing Status: Weight bearing as tolerated Dressing / Incision Call your doctor if your incision/area has: Continuous Slow Oozing and Foul Smelling Discharge Call your doctor if you observe: Fever of 101 or Higher, Shortness of breath and Chest pain Follow Up Care Please Follow Up With: Guillermo Menard MD When: 2 weeks postoperatively Test Results: Test results from this visit will be discussed in further detail at your follow- up appointment, if applicable. Discharge Plan Admission Attending Provider: Guillermo Menard Primary Care Provider: Care Physician,No Primary Discharge Orders/Prescriptions Prescriptions: No Action ascorbic acid (vitamin C) [C-500] 500 mg tablet 500 mg PO DAILY Referrals / Follow Up: Care Physician,No Primary [Primary Care Provider] - Disposition Disposition (needs filled in before D/C Order can be placed): Home, Self Care
--- NOTE | 2023-03-29 14:50 | PCM.OPRPT ---
Report of Operation Date of Procedure: 03/29/23 Pre-Operative Diagnosis: Cervical intraepithelial neoplasia 2 Post-Operative Diagnosis: Cervical intraepithelial neoplasia 2 Surgery/Procedure Performed:: Loop electrosurgical excision procedure Description of Surgical Findings:: Surgeon: Guillermo Menard MD Anesthesia: General EBL: 20 cc Urine output: Not measured IV fluids: 800 cc Complications: None Specimen: Cervical conization Findings: Local solution revealed decreased uptake at 12 o'clock position. Modified Sturmdorf sutures placed. Monsel's placed over surgical site. Consent: Patient with cervical intraepithelial neoplasia 2 elects for loop electrosurgical excision procedure. Patient understands risk of the procedure include but are not limited to visceral or vascular injury, prolonged hospitalization, blood loss need for transfusion, reoperation. Patient state understanding wish to proceed. All questions were answered and consent was signed. Procedure: Patient was brought back to the OR where general anesthesia was found to be adequate. 2 g of Ancef were given for infection prophylaxis. Patient was prepared and draped in a dorsolithotomy position with yellowfin stirrups. A speculum was inserted, local solution was placed over the cervix and above findings were noted. Using a loop electrocautery device cervical conization was performed and tissue was sent to pathology. Hemostasis was achieved with electrocautery rollerball. Modified Sturmdorf sutures were placed with 2-0 Vicryl. Good hemostasis was noted. Monsel solution was placed over the entirety of the operative field. Good hemostasis was noted. All counts were correct x2. Patient tolerated the procedure well and was brought to recovery in a stable condition.
[2023-03-29 14:57] VITALS: BP 106/63; BP 118/60; PULSE 80; RESP 16; TEMP 36.8; O2SAT 97
[2023-03-29 15:00] VITALS: BP 106/63; BP 115/66; PULSE 88; RESP 16; O2SAT 100
[2023-03-29 15:11] VITALS: BP 106/63; BP 109/73; PULSE 69; RESP 16; O2SAT 100
[2023-03-29] MEDS: Acetaminophen 500 MG Tablet 1000 MG PO (15:39)
[2023-03-29 15:56] VITALS: BP 106/63; BP 99/57; PULSE 60; RESP 18; TEMP 36.6; O2SAT 99
== END 2023-03-29 16:27 | disposition home or self-care (01) ==
LOC: SDC 11:07
PROVIDERS: Anesthesiology; Referring Provider Obstetrics & Gynecology; Visit Provider Obstetrics & Gynecology
PROC: 0UBC7ZZ Excision of Cervix, Via Natural or Artificial Opening (ICD-10-PCS; CPT 57522; principal; 2023-03-29 12:35)
DX: N87.1 Moderate cervical dysplasia (principal); Z87.891 Personal history of nicotine dependence
CPT/HCPCS: 57522; 00940; 81025; 88307; 88341; 88342; J7120; J2405